=== PATIENT | female | born 1975 | race Hispanic/Latino ===

== ENCOUNTER 2024-03-05 09:04 | Outpatient (CLI) | payer OTHER | END 2024-03-05 09:05 | disposition home or self-care (01) | LOC: CSHMAMMO 09:04 | PROVIDERS: ATTEND Family Medicine | DX: Z12.31 Encounter for screening mammogram for malignant neoplasm of breast (principal) | CPT/HCPCS: 77063; 77067 ==

== ENCOUNTER 2024-12-20 22:28 | Observation (INO) | payer OTHER ==
[2024-12-21 00:32] LABS: #Basophils 0.05 10x3/uL (0.0-0.2); #Eosinophils 0.30 10x3/uL (0.0-0.5); #Monocytes 0.68 10x3/uL (0.0-1.1); #Neutrophils 8.81 10x3/uL (1.5-8.4); %Basophils 0.4 % (0.0-2.0); %Eosinophils 2.3 % (0.0-6.0); %Lymphocytes 24.7 % (18.0-47.0); %Monocytes 5.2 % (0.0-10.0); %Neutrophils 66.7 % (40.0-75.0); Hematocrit 39.7 % (34.9-44.5); Hemoglobin 13.4 g/dL (12.0-15.5); Mean Corpuscular Hemoglobin 29.3 pg (27.0-33.0); Mean Corpuscular Volume 86.7 fL (81.6-98.3); Platelet Count 323 10x3/uL (150-450); Red Blood Cell (RBC) Count 4.58 10x6/uL (3.90-5.03); White Blood Cell (WBC) Count 13.18 10x3/uL (3.5-10.5)
[2024-12-21 00:47] LABS: ALT (SGPT) 17 U/L (Less than 34); AST (SGOT) 18 U/L (11-34); Albumin 4.2 g/dL (3.1-4.5); Alkaline Phosphatase 59 U/L (40-110); Anion Gap 14 mmol/L (10-20); BUN (Urea Nitrogen) 14 mg/dL (7.0-18.7); Bilirubin, Total 0.4 mg/dL (0.3-1.2); Calc. Creatinine Clearance 0 mL/min (70-130); Calcium 9.2 mg/dL (7.8-10.44); Carbon Dioxide 26 mmol/L (22-29); Chloride 104 mmol/L (98-107); Globulin 3.5 g/dL (2.4-3.5); Glucose 102 mg/dL (70-105); Potassium 4.0 mmol/L (3.5-5.1); Sodium 140 mmol/L (136-145)
[2024-12-21 00:53] LABS: Troponin I 0.050 ng/mL (< 0.028)
[2024-12-21 03:02] LABS: Troponin I 0.132 ng/mL (< 0.028)
[2024-12-21] MEDS ORDERED: Acetaminophen 325 MG TAB PO PRN (05:11)
[2024-12-21] MEDS ORDERED: Nitroglycerin 0.4 MG TAB (25 Tab Bottle) SL PRN (05:11)
[2024-12-21] MEDS ORDERED: Ondansetron PF 4 MG/2 ML Vial IVP PRN (05:11)
[2024-12-21 06:04] LABS: Troponin I 0.136 ng/mL (< 0.028)
[2024-12-21] MEDS ORDERED: Aspirin Chewable 81 MG TAB ONE (06:34)
[2024-12-21 21:45] VITALS: BMI 33.2
[2024-12-22 06:53] LABS: #Basophils 0.04 10x3/uL (0.0-0.2); #Eosinophils 0.31 10x3/uL (0.0-0.5); #Monocytes 0.63 10x3/uL (0.0-1.1); #Neutrophils 5.54 10x3/uL (1.5-8.4); %Basophils 0.4 % (0.0-2.0); %Eosinophils 3.3 % (0.0-6.0); %Lymphocytes 30.5 % (18.0-47.0); %Monocytes 6.7 % (0.0-10.0); %Neutrophils 58.8 % (40.0-75.0); Hematocrit 37.7 % (34.9-44.5); Hemoglobin 12.4 g/dL (12.0-15.5); Mean Corpuscular Hemoglobin 28.8 pg (27.0-33.0); Mean Corpuscular Volume 87.5 fL (81.6-98.3); Platelet Count 290 10x3/uL (150-450); Red Blood Cell (RBC) Count 4.31 10x6/uL (3.90-5.03); White Blood Cell (WBC) Count 9.43 10x3/uL (3.5-10.5)
[2024-12-22 07:08] LABS: Anion Gap 11 mmol/L (10-20); BUN (Urea Nitrogen) 13 mg/dL (7.0-18.7); Calc. Creatinine Clearance 151 mL/min (70-130); Calcium 8.4 mg/dL (7.8-10.44); Carbon Dioxide 24 mmol/L (22-29); Chloride 108 mmol/L (98-107); Glucose 98 mg/dL (70-105); Potassium 3.8 mmol/L (3.5-5.1); Sodium 139 mmol/L (136-145)
[2024-12-22] MEDS: Aspirin 81 mg Enteric Coated Tablet PO SCH (08:13)
[2024-12-22 09:07] VITALS: BP 126/72; TEMP 97.4
== END 2024-12-22 11:44 | disposition home or self-care (01) ==
LOC: CSHERS 22:28 → CSHERHOLD 12-21 05:15 → CSHTELE 12-21 19:06
PROVIDERS: ADMIT Internal Medicine; ATTEND Family Medicine
PROC: B245ZZ4 Ultrasonography of Left Heart, Transesophageal (ICD-10-PCS; principal; 2024-12-21)
DX: R07.89 Other chest pain (principal); I10 Essential (primary) hypertension; E66.9 Obesity, unspecified; Z68.32 Body mass index [BMI] 32.0-32.9, adult; Z79.82 Long term (current) use of aspirin; Z88.0 Allergy status to penicillin; Z79.899 Other long term (current) drug therapy
CPT/HCPCS: 36415; 71045; 80048; 80053; 84443; 84484; 85025; 93005; 93306; G0378; J7030